=== PATIENT | female | born 1995 | race Caucasian/White ===

== ENCOUNTER 2021-03-06 04:18 | Emergency (ER) | payer MEDICAID ==
[~2021-03-06] VITALS: Ht 165.1 cm; Wt 78.0 kg
[2021-03-06 04:24] VITALS: BP 122/67
--- NOTE | 2021-03-06 04:31 | NUR ---
no nursing intervention ordered by Dr. Hastings.
--- NOTE | 2021-03-06 04:32 | NUR ---
d/c with [facility]. ok to book per Dr. Hastings. d/c education given. d/c back to [facility] officer Mike #[id number]. NAD
== END 2021-03-06 04:32 | disposition home or self-care (01) ==
LOC: MED 04:18
DX: F10.129 Alcohol abuse with intoxication, unspecified (principal); Z02.89 Encounter for other administrative examinations; Y90.9 Presence of alcohol in blood, level not specified
CPT/HCPCS: 99283